=== PATIENT | male | born 2000 | race Caucasian/White ===

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

== ENCOUNTER 2022-12-13 15:39 | Emergency (ER) | payer MEDICAID, SELFPAY ==
[2022-12-13 15:41] VITALS: BP 148/92; PULSE 85; RESP 16; TEMP 36.6; O2SAT 100; BMI 22.9
--- NOTE | 2022-12-13 17:00 | RAD_ITS ---
EXAM: XR RIGHT HAND COMPLETE, 3 OR MORE VIEWS CLINICAL INDICATION: BLUNT TRAUMA, PAIN SWELLING DEFORMITY TECHNIQUE: Frontal, lateral and oblique views of the right hand. COMPARISON: 04/13/2020 FINDINGS: BONES/JOINTS: There is a lucency through the fifth metacarpal which may represent a nonhealed fracture from the previous study or a new fracture of the fifth metacarpal. Preservation of the joint space. SOFT TISSUES: Unremarkable. No soft tissue swelling or gas. No radiopaque foreign body. RAD/Hand Min 3 Views IMPRESSION: Lucency through the fifth metacarpal which may represent a nonhealed fracture from the previous study or a new fracture of the fifth metacarpal. Electronically Signed: Blas Gill MD at 18:06 EDT ,
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
[2022-12-13 17:40] VITALS: RESP 16
== END 2022-12-13 17:44 | disposition home or self-care (01) ==
LOC: ED 17:36
PROVIDERS: Emergency Provider Emergency Medicine; Visit Provider Emergency Medicine
DX: S62.306A Unspecified fracture of fifth metacarpal bone, right hand, initial encounter for closed fracture (principal); X58.XXXA Exposure to other specified factors, initial encounter; F17.210 Nicotine dependence, cigarettes, uncomplicated
CPT/HCPCS: 73130; 99282